=== PATIENT | male | born 1965 | race Caucasian/White ===

== ENCOUNTER 2017-02-12 13:25 | Emergency (ER) | payer MEDICAID ==
[~2017-02-12] VITALS: Ht 165.1 cm; Wt 68.0 kg
[~2017-02-12 13:25] MED LIST: BUPR300T52 PO; GABA600T2 PO; HYDR-548 PO; LEVO88TA5 PO; METH10TA2 PO; QUET300T2 PO
--- NOTE | 2017-02-12 13:28 | NUR ---
Pt [id number] from street: si with plan to od on methadone. Placed on monitor. VSS. Gowned Pt. removed all belongings.
[2017-02-12 13:51] LABS: BASOPHILS % (AUTO) 0.3 % (0.0-2.0); EOSINOPHILS # (AUTO) 0.7 /CMM (0.0-0.7); HEMATOCRIT 42 % (39-51); HEMOGLOBIN 14.3 g/dL (13.5-17.5); LYMPHOCYTES # (AUTO) 1.5 /CMM (0.8-4.8); LYMPHOCYTES % (AUTO) 17.4 % (20.0-44.0); MEAN CORPUSCULAR HEMOGLOBIN 33 PG (26.0-33.0); MEAN CORPUSCULAR HGB CONC 34 g/dl (31.0-36.0); MEAN CORPUSCULAR VOLUME 96 fL (80-96); MONOCYTES # (AUTO) 0.9 /CMM (0.1-1.30); MONOCYTES % (AUTO) 10.2 % (2.0-12.0); NEUTROPHILS # (AUTO) 5.8 /CMM (1.8-8.9); NEUTROPHILS % (AUTO) 64.1 % (43.0-81.0); PLATELET COUNT (AUTO) 360 /CMM (150-450); RED BLOOD CELL COUNT(AUTO) 4.41 MIL/uL (4.5-6.0); WHITE BLOOD COUNT (AUTO) 8.9 K/uL (4.3-11.0)
[2017-02-12 14:07] LABS: ALANINE AMINOTRANSFERASE 33 U/L (12-78); ALBUMIN 4.2 g/dL (3.4-5.0); ALCOHOL, BLOOD < 3 mg/dL (0-0); ALKALINE PHOSPHATASE 76 U/L (46-116); ASPARTATE AMINOTRANSFERASE 26 U/L (15-37); BILIRUBIN,DIRECT 0.1 mg/dL (0.0-0.2); BILIRUBIN,TOTAL 0.4 mg/dL (0.2-1.0); CALCIUM, SERUM 9.2 mg/dL (8.5-10.1); CARBON DIOXIDE 30 mmol/L (21-32); CHLORIDE 102 mmol/L (98-107); CREATININE 1.1 mg/dL (0.6-1.3); GLUCOSE 91 mg/dL (74-106); POTASSIUM 3.6 mmol/L (3.5-5.1); SODIUM SERUM 141 mmol/L (136-145); TOTAL PROTEIN, SERUM 7.8 g/dL (6.4-8.2); UREA NITROGEN, BLOOD 21 mg/dL (7-18)
[2017-02-12 14:09] LABS: ACETAMINOPHEN 0 ug/ml (10-30); SALICYLATE 1.7 mg/dL (2.8-20.0)
--- NOTE | 2017-02-12 14:30 | NUR ---
URINE SAMPLE COLLECTED SENT TO LAB
[2017-02-12 14:31] LABS: APPEARANCE,URINE Clear (CLEAR); BILIRUBIN,URINE SMALL (NEGATIVE); BLOOD, URINE Negative Ery/uL (NEGATIVE); COLOR,URINE Yellow (YELLOW); KETONES,URINE 15 (NEGATIVE); LEUKOCYTE ESTERASE ,URINE Negative (NEGATIVE); NITRITE, URINE Negative (NEGATIVE); PROTEIN,URINE Trace mg/dl (NEGATIVE); UGLUCOSE Negative (NEGATIVE); UROBILINOGEN,URINE 0.2 EU/dL (0.2)
--- NOTE | 2017-02-12 14:51 | NUR ---
CALLED BRYAN RN FOR EVAL ETA 1 HOUR
--- NOTE | 2017-02-12 15:39 | NUR ---
PINKY AT BEDSIDE FOR PSYCH EVAL
--- NOTE | 2017-02-12 18:21 | NUR ---
PENDING CONFIRMATION FOR PLACEMENT PER PINKY PSYCH EVAL
--- NOTE | 2017-02-12 18:41 | NUR ---
CALL BACK FROM [facility], ACCEPTED AT [facility] IN [place] BY DR HARDING, [address] [address], REPORT TO BE CALLED TO [phone].
--- NOTE | 2017-02-12 18:47 | NUR ---
CALLED [facility] FOR BLS TRANSPORT, ETA 30 MINUTES
--- NOTE | 2017-02-12 18:49 | NUR ---
CALLED [facility] SPOKE TO MAX SHE HASNT RECEIVED INTAKE INFO DOESNT WANT TO TAKE REPORT WANT CALL BACK LATER.
--- NOTE | 2017-02-12 19:02 | NUR ---
PT WALKED OUT ALERT ORIENTED REFUSED TO BE TRANSFERRED TO [facility]. PT NOT ON A HOLD. PT ELOPE. BJ SPOKE TO PT . PT STATE WANTS TO LEAVE.
--- NOTE | 2017-02-12 19:03 | NUR ---
SPOKE TO CLINICIAN BRYAN MEYERS AND INFORMED HER PATIENT DID NOT WANT TO STAY AND STATED "I'M GOING TO GO TO SOMEWHERE ELSE. SOMEONE IS ALREADY COMING TO PICK ME UP."
[2017-02-12 19:06] VITALS: BP 135/83
--- NOTE | 2017-02-12 19:06 | NUR ---
Patient eloped from facility. ER MD notified.
--- NOTE | 2017-02-12 19:11 | NUR ---
CALLED [facility] SPOKE TO CHARGE MAX. MADE AWARE PT HARVEY
== END 2017-02-12 19:09 | disposition left against medical advice (07) ==
LOC: ER 13:26
DX: R45.851 Suicidal ideations (principal); F31.9 Bipolar disorder, unspecified; F25.9 Schizoaffective disorder, unspecified; Z88.8 Allergy status to other drugs, medicaments and biological substances; E03.9 Hypothyroidism, unspecified; Z98.890 Other specified postprocedural states
CPT/HCPCS: 36415; 80048; 80076; 80305; 80329; 81001; 85025; 99284; A4606; G0480 ×2; Z7610; 81000-TC

== ENCOUNTER 2017-07-16 11:57 | Emergency (ER) | payer MEDICAID ==
[~2017-07-16] VITALS: Ht 177.8 cm; Wt 93.0 kg
--- NOTE | 2017-07-16 12:05 | NUR ---
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 PATIENT IS A/OX 3, WITH DELAYED RESPONSE. LETHARGIC, BREATHING EVEN AND UNALBORED. NO SOB. VITALS STABLE. SAFETY AND COMFORT MEASURES IN PLACE. AWAITING MD ORDERS.
[2017-07-16 12:44] LABS: BASOPHILS % (AUTO) 0.3 % (0.0-2.0); EOSINOPHILS # (AUTO) 1.9 /CMM (0.0-0.7); HEMATOCRIT 37 % (39-51); HEMOGLOBIN 12.9 g/dL (13.5-17.5); LYMPHOCYTES # (AUTO) 1.4 /CMM (0.8-4.8); LYMPHOCYTES % (AUTO) 14.1 % (20.0-44.0); MEAN CORPUSCULAR HEMOGLOBIN 32 PG (26.0-33.0); MEAN CORPUSCULAR HGB CONC 35 g/dl (31.0-36.0); MEAN CORPUSCULAR VOLUME 93 fL (80-96); MONOCYTES # (AUTO) 0.5 /CMM (0.1-1.30); MONOCYTES % (AUTO) 5.1 % (2.0-12.0); NEUTROPHILS # (AUTO) 6.3 /CMM (1.8-8.9); NEUTROPHILS % (AUTO) 61.5 % (43.0-81.0); PLATELET COUNT (AUTO) 284 /CMM (150-450); RDW COEFFICIENT OF VARIATION 13.6 (11.5-15.0); RED BLOOD CELL COUNT(AUTO) 3.98 MIL/uL (4.5-6.0); WHITE BLOOD COUNT (AUTO) 10.1 K/uL (4.3-11.0)
[2017-07-16 12:59] LABS: INR 1.07 (0.87-1.13); PROTHROMBIN TIME 11.1 SECS (9.5-12.7)
[2017-07-16 13:00] LABS: ALANINE AMINOTRANSFERASE 70 U/L (12-78); ALBUMIN 2.8 g/dL (3.4-5.0); ALCOHOL, BLOOD < 3 mg/dL (0-0); ALKALINE PHOSPHATASE 63 U/L (46-116); ASPARTATE AMINOTRANSFERASE 89 U/L (15-37); BILIRUBIN,DIRECT 0.1 mg/dL (0.0-0.2); BILIRUBIN,TOTAL 0.5 mg/dL (0.2-1.0); CALCIUM, SERUM 8.5 mg/dL (8.5-10.1); CARBON DIOXIDE 27 mmol/L (21-32); CHLORIDE 107 mmol/L (98-107); CREATININE 0.7 mg/dL (0.6-1.3); GLUCOSE 115 mg/dL (74-106); SODIUM SERUM 140 mmol/L (136-145); UREA NITROGEN, BLOOD 22 mg/dL (7-18)
[2017-07-16 13:01] LABS: TROPONIN I < 0.017 ng/mL (0.00-0.056)
[2017-07-16 13:03] LABS: ACETAMINOPHEN 0 ug/ml (10-30); SALICYLATE 0.5 mg/dL (2.8-20.0)
[2017-07-16 13:04] LABS: POTASSIUM 2.7 mmol/L (3.5-5.1)
--- NOTE | 2017-07-16 13:13 | NUR ---
PATIENT TAKEN TO CT VIA STRETCHER.
--- NOTE | 2017-07-16 13:25 | NUR ---
PATIENT RETURNED FROM CT IN STABLE CONDITION.
[2017-07-16] MEDS ORDERED: POTASSIUM CHLORIDE 20 MEQ TAB.PRT.SR PO ONE ×2 (13:29→13:30)
[2017-07-16] MEDS ORDERED: IV NS 0.9% 1,000 ML BAG IV ONE (13:30)
--- NOTE | 2017-07-16 13:34 | NUR ---
URINE OBTAINED AND SENT TO LAB. PATIENT MEDICATED PER MD ORDERS.
[2017-07-16 13:40] LABS: APPEARANCE,URINE Clear (CLEAR); BILIRUBIN,URINE SMALL (NEGATIVE); BLOOD, URINE Negative Ery/uL (NEGATIVE); COLOR,URINE Yellow (YELLOW); KETONES,URINE 15 (NEGATIVE); LEUKOCYTE ESTERASE ,URINE Negative (NEGATIVE); NITRITE, URINE Negative (NEGATIVE); PROTEIN,URINE 30 mg/dl (NEGATIVE); UGLUCOSE Negative (NEGATIVE); UROBILINOGEN,URINE 0.2 EU/dL (0.2)
[2017-07-16 13:46] LABS: BACTERIA,URINE Rare /HPF (None Seen); RBC,URINE 0-2 /HPF (0-2); SQUAMOUS EPITHELIAL CELL,UR Few /HPF (None Seen); WBC,URINE 0-2 /HPF (0-3)
[2017-07-16 18:48] VITALS: BP 109/73
--- NOTE | 2017-07-16 18:49 | NUR ---
IV removed. Catheter intact and site benign. Pressure and 4x4 applied to site. No bleeding noted. Patient discharged to home in stable condition. Written and verbal after care instructions given. Patient verbalizes understanding of instruction.
== END 2017-07-16 18:49 | disposition home or self-care (01) ==
LOC: ER 11:59
DX: R41.82 Altered mental status, unspecified (principal); F15.10 Other stimulant abuse, uncomplicated; E87.6 Hypokalemia; F20.9 Schizophrenia, unspecified; R79.1 Abnormal coagulation profile; F31.9 Bipolar disorder, unspecified; F10.10 Alcohol abuse, uncomplicated; Z88.8 Allergy status to other drugs, medicaments and biological substances
CPT/HCPCS: 36415; 70450; 71010; 80048; 80076; 80305; 80329; 81001; 82962; 83690; 84484; 85025; 85730; 93005; 96360; 99285; A4606; G0480 ×2; J7030; J7040; Z7610; 81000-TC